=== PATIENT | male | born 1960 | race Two or more races ===

== ENCOUNTER 2017-12-06 02:28 | Emergency (ER) | payer BC, OTHER ==
[2017-12-06 02:35] VITALS: BP 143/86; PULSE 83; RESP 16; TEMP 97.1; O2SAT 99
[2017-12-06] MEDS ORDERED: PROPARACAINE HCL 0.5% OPHTHALMIC SOL ONE (03:00)
[2017-12-06] MEDS ORDERED: PROPARACAINE HCL 0.5% OPHTHALMIC SOL OP ONE (03:13)
== END 2017-12-06 03:12 | disposition home or self-care (01) | DRG 125 ==
LOC: ED 02:28
DX: S05.02XA Injury of conjunctiva and corneal abrasion without foreign body, left eye, initial encounter (principal); X58.XXXA Exposure to other specified factors, initial encounter
CPT/HCPCS: 99282; 99283; A9270-GY